=== PATIENT | male | born 1945 ===

== ENCOUNTER 2017-08-25 07:27 | Emergency (ER) | payer OTHER ==
[2017-08-25 07:27] VITALS: BMI 28.8
[2017-08-25 07:47] VITALS: O2SAT 98
--- NOTE | 2017-08-25 08:32 | C.PDOC ---
History Of Present Illness 72yo male with PMD HTN and DM, presents to ED accompanied by his daughter for evaluation of dizziness this morning. Pt notes that he was in bed, felt like the room was spinning for about 10 minutes. Symptoms associated with nausea. He had a similar episode a couple years ago while in [place] and was given "an injection" which relieved his symptoms and was diagnosed with vertigo. Pt notes he has had his right eye twitching x 10 years. He believes its secondary to "nerve damage" after tooth extraction. Daughter denies any changes in his mental states, speech or facial expressions. Patient denies any falls, head injury, loss of consciousness, headache, vision changes, weakness, or numbness. No new medications or foods. Time Seen by Provider: 08/25/17 07:57 Chief Complaint (Nursing): Weakness/Neurological Deficit History Per: Patient, Family (daughter), [employer] ([employer]) History/Exam Limitations: no limitations Onset/Duration Of Symptoms: Hrs Current Symptoms Are (Timing): Gone Activity At Onset Of Symptoms: Lying Associated Symptoms Preceding Syncopal Episode: No Predromal Symptoms (Sudden Onset) Seizure Or Post-ictal Symptoms: None Fall Associated With With Symptoms: No Additional History Per: Family Past Medical History Reviewed: Historical Data, Nursing Documentation, Vital Signs Vital Signs: Last Vital Signs Temp 98.7 F 08/25/17 09:30 Pulse 72 08/25/17 09:30 Resp 16 08/25/17 09:30 BP 149/76 08/25/17 09:30 Pulse Ox 98 08/25/17 10:10 - Medical History PMH: Diabetes, HTN Surgical History: No Surg Hx - [facility] Procedures DX ULTRASOUND NEC (05/30/13) PERCUTAN NEEDLE BIOPSY OF PROSTATE (05/30/13) Family History: States: No Known Family Hx - Social History Hx Tobacco Use: No Hx Alcohol Use: No Hx Substance Use: No Review Of Systems Except As Marked, All Systems Reviewed And Found Negative. Eyes: Negative for: Vision Change Gastrointestinal: Positive for: Nausea. Negative for: Vomiting Neurological: Positive for: Dizziness. Negative for: Weakness, Numbness, Headache Physical Exam - Physical Exam Appears: Non-toxic, No Acute Distress Skin: Normal Color, Warm, Dry Head: Atraumatic, Normacephalic Eye(s): bilateral: PERRL, EOMI, right: Other (involuntary right eye twitch) Nose: Normal Oral Mucosa: Moist Throat: Normal, No Erythema Neck: Normal ROM, Supple Chest: Symmetrical Cardiovascular: Rhythm Regular Respiratory: Normal Breath Sounds Gastrointestinal/Abdominal: Normal Exam, Soft, No Tenderness Back: Normal Inspection Extremity: Normal ROM, No Pedal Edema, No Deformity Neurological/Psych: Oriented x3, Normal Speech, Normal Cognition, Normal Cranial Nerves (2-12 grossly intact), Cerebellar Signs ((-) Ataxia (-) Nystagmus (-) slurred speech (-) tremot), Normal Motor (5/5 against resistance) , Normal Sensation, No Other (focal deficits) Extremity: Right: No Drift, Left: No Drift, Upper: No Drift, Lower: No Drift ED Course And Treatment - Laboratory Results Result Diagrams: 08/25/17 08:52 08/25/17 08:52 ECG: Interpreted By Me, Viewed By Me ECG Rhythm: Sinus Rhythm ECG Interpretation: No Acute Changes Rate From EC O2 Sat by Pulse Oximetry: 98 (RA) Pulse Ox Interpretation: Normal - CT Scan/US CT head w/o contrast Other Rad Studies (CT/US): Radiology Report Reviewed CT/US Interpretation: FINDINGS: HEMORRHAGE: No intracranial hemorrhage. BRAIN : No mass effect or edema. Scattered focal lucencies in the subcortical and periventricular white matter suggestive for chronic microvascular ischemic change. Bilateral basal ganglia calcifications. Punctate calcification within the inferior left cerebellum. VENTRICLES: Unremarkable. No hydrocephalus. CALVARIUM: Unremarkable. PARANASAL SINUSES: Unremarkable as visualized. No significant inflammatory changes. MASTOID AIR CELLS: Unremarkable as visualized. No inflammatory changes. OTHER FINDINGS: Intracranial arterial calcifications. IMPRESSION: Chronic microvascular ischemic changes. If symptoms persists, consider correlation with MRI. Progress Note: Labs, EKG and CT Head w/o contrast ordered. Patient given Meclizine and Lopressor PO. 1008 On re-evaluation, patient reports dizziness has resolved. CT report reviewed and shows no acute findings. Patient offered admission but refuses, states he feels asymptomatic. Daughter at bedside and sattes she lives with him and is comfortable with being discharged home. Daughter instructed to follow up with PMD and to return to ER if symptoms worsen or new symptoms arise. Case discussed with Dr Patel, agreed upon plan and treatment. Disposition - Disposition Disposition: HOME/ ROUTINE Disposition Time: 09:30 Condition: STABLE Additional Instructions: Vaya a herring mdico o la clnica en 2-3 longo sin falta, para mas evaluacin. [place] los medicamentos garett indicado. Volver a la beth de emergencia en cualquier momento si los sntomas persisten o empeoran. Instructions: Vertigo (a Type of Dizziness) (DC) Forms: (AMA) Informed Refusal, [facility] (Yoruba) Print Language: KHMER - Clinical Impression Clinical Impression: Dizziness - PA / SECTION WEAVER / Resident Statement MD/DO has reviewed & agrees with the documentation as recorded. - Scribe Statement The provider has reviewed the documentation as recorded by the Scribe (Julee Reynoso) Provider Attestation: All medical record entries made by the Scribe were at my direction and personally dictated by me. I have reviewed the chart and agree that the record accurately reflects my personal performance of the history, physical exam, medical decision making, and the department course for this patient. I have also personally directed, reviewed, and agree with the discharge instructions and disposition.
--- NOTE | 2017-08-25 08:39 | RAD ---
Chest x-ray single frontal view History: Shortness of breath. Comparison: None available. Findings: Mild venous congestion. Elevated right hemidiaphragm. Mild cardiomegaly. Mild patchy increased markings at the left lung base. Tortuous aorta. Degenerative changes in the spine. Impression: Mild venous congestion. Elevated right hemidiaphragm. Mild cardiomegaly. Mild patchy increased markings at the left lung base. Tortuous aorta.
[2017-08-25 08:43] VITALS: RESP 16
[2017-08-25 09:00] LABS: BASO # 0.1 K/uL (0.0-0.2); BASO % 1.3 % (0.0-2.0); EOS # 0.1 K/uL (0.0-0.7); EOS % 1.5 % (0.0-4.0); HEMOGLOBIN 13.6 g/dL (12.0-18.0); LYMPH # 1.3 K/uL (1.0-4.3); LYMPH % 21.4 % (20.0-40.0); MEAN CELL VOLUME 83.2 fL (80.0-94.0); MEAN CORPUSCULAR HGB CONC 34.9 g/dL (33.0-37.0); MEAN PLATELET VOLUME 8.4 fL (7.2-11.7); MONO # 0.5 K/uL (0.0-0.8); MONO % 7.7 % (0.0-10.0); NEUT # 4.1 K/uL (1.8-7.0); NEUT % 68.1 % (50.0-75.0); NRBC % 0.2 % (0.0-2.0); RBC 4.68 Mil/uL (4.40-5.90); RED CELL DISTRIBUTION WIDTH 13.6 % (11.5-14.5); WHITE BLOOD COUNT 6.1 K/uL (4.8-10.8)
--- NOTE | 2017-08-25 09:06 | CT ---
PROCEDURE: CT HEAD WITHOUT CONTRAST. HISTORY: Weakness. Vomiting. Dizziness. COMPARISON: None available. TECHNIQUE: Axial computed tomography images were obtained through the head/brain without intravenous contrast. Radiation dose: Total exam DLP = 860 mGy-cm. This CT exam was performed using one or more of the following dose reduction techniques: Automated exposure control, adjustment of the mA and/or kV according to patient size, and/or use of iterative reconstruction technique. FINDINGS: HEMORRHAGE: No intracranial hemorrhage. BRAIN: No mass effect or edema. Scattered focal lucencies in the subcortical and periventricular white matter suggestive for chronic microvascular ischemic change. Bilateral basal ganglia calcifications. Punctate calcification within the inferior left cerebellum. VENTRICLES: Unremarkable. No hydrocephalus. CALVARIUM: Unremarkable. PARANASAL SINUSES: Unremarkable as visualized. No significant inflammatory changes. MASTOID AIR CELLS: Unremarkable as visualized. No inflammatory changes. OTHER FINDINGS: Intracranial arterial calcifications. IMPRESSION: Chronic microvascular ischemic changes. If symptoms persists, consider correlation with MRI.
[2017-08-25 09:16] LABS: ALB/GLOB RATIO 1.3 (1.0-2.1); ALBUMIN 4.1 g/dL (3.5-5.0); ALT/SGPT 13 U/L (21-72); AST/SGOT 23 U/L (17-59); BLOOD UREA NITROGEN 13 mg/dL (9-20); CALCIUM 8.4 mg/dl (8.6-10.4); GFR AFRICAN-AMERICAN > 60; GFR NON-AFRICAN AMERICAN > 60
[2017-08-25 09:21] LABS: CK-MB 1.52 ng/mL (0.0-3.38)
[2017-08-25 09:43] VITALS: BP 149/76; PULSE 72
[2017-08-25] MEDS ORDERED: Potassium Chloride 20 mEq ER Tab PO STA (09:51)
[2017-08-25 10:42] VITALS: TEMP 98.7
--- NOTE | 2017-08-27 11:55 | CARD ---
APPROVED REPORT EKG Measurement Heart [id number] <Conclusion> Normal sinus rhythm Nonspecific T wave abnormality Abnormal ECG
== END 2017-08-25 10:15 | disposition home or self-care (01) ==
LOC: C.ER 07:27
DX: R42 Dizziness and giddiness (principal); I10 Essential (primary) hypertension